=== PATIENT | female | born 1990 | race African-American/Black ===

== ENCOUNTER 2017-09-30 15:17 | Emergency (ER) | payer SELFPAY ==
[~2017-09-30] VITALS: Ht 157.5 cm; Wt 50.0 kg
[2017-09-30 15:18] VITALS: BP 120/70; PULSE 83; RESP 16; TEMP 99.4; O2SAT 100
--- NOTE | 2017-09-30 16:25 | PD ---
HPI Chief Complaint: Related Problem Time Seen by Provider: 16:24 Travel History International Travel<30 days: No Contact w/Intl Traveler<30days: No Traveled to known affect area: No History of Present Illness HPI 26 YO F presents to the ED for evaluation of 2 week history of 6/ 10 epigastric discomfort and nausea. Worsened after eating. She states that she feels as if her food "isn't sitting right." Patient denies fever, chills, anorexia, constipation, diarrhea, melena, hematochezia, dysuria, urinary urgency , vaginal discharge, vaginal bleeding, back pain. LMP 08/17/17. She states that she found out she was on 09/16, has not seen an soil analyst. Her daughter is 5, healthy. Patient denies chronic health problems and takes no daily medications. Denies cigarette smoking or illicit drug use. PFSH Social History Tobacco Use: No Allergies-Medications Reported Meds & Prescriptions Reported Meds & Active Scripts Active Ranitidine (Ranitidine HCl) 150 Mg Tab 150 Mg PO DAILY Review of Systems Except as stated in HPI: all other systems reviewed are Neg Physical Exam Narrative GENERAL: Well-nourished, well-developed thin black female in no acute distress. SKIN: Focused skin assessment warm/dry. HEAD: Normocephalic. EYES: No scleral icterus. No injection or drainage. NECK: Supple, trachea midline. No JVD or lymphadenopathy. CARDIOVASCULAR: Regular rate and rhythm without murmurs, gallops, or rubs. RESPIRATORY: Breath sounds clear and equal bilaterally. No accessory muscle use. GASTROINTESTINAL: Abdomen soft, non-tender, nondistended. No suprapubic tenderness. Active bowel sounds. MUSCULOSKELETAL: No cyanosis, or edema. BACK: Nontender without obvious deformity. No CVA tenderness. Data Data Last Documented VS Vital Signs Date Time Temp Pulse Resp B/P (MAP) Pulse Ox O2 Delivery O2 Flow Rate FiO2 09/30/17 18:04 09/30/17 15:18 99.4 83 16 100 Room Air Orders Orders Beta Hcg (Quant/Titer) (09/30/17 15:36) Urinalysis - C+S If Indicated (09/30/17 15:36) Complete Rh (09/30/17 15:36) Complete Blood Count With Diff (09/30/17 15:36) Basic Metabolic Panel (Bmp) (09/30/17 15:36) Ed Discharge Order (09/30/17 17:27) Labs Laboratory Tests Test 09/30/17 15:45 White Blood Count 9.4 TH/MM3 Red Blood Count 4.71 MIL/MM3 Hemoglobin 14.1 GM/DL Hematocrit 42.6 % Mean Corpuscular Volume 90.5 FL Mean Corpuscular Hemoglobin 29.9 PG Mean Corpuscular Hemoglobin Concent 33.1 % Red Cell Distribution Width 14.5 % Platelet Count 251 TH/MM3 Mean Platelet Volume 8.6 FL Neutrophils (%) (Auto) 74.1 % Lymphocytes (%) (Auto) 17.3 % Monocytes (%) (Auto) 7.1 % Eosinophils (%) (Auto) 1.3 % Basophils (%) (Auto) 0.2 % Neutrophils # (Auto) 7.0 TH/MM3 Lymphocytes # (Auto) 1.6 TH/MM3 Monocytes # (Auto) 0.7 TH/MM3 Eosinophils # (Auto) 0.1 TH/MM3 Basophils # (Auto) 0.0 TH/MM3 CBC Comment DIFF FINAL Differential Comment Urine Color YELLOW Urine Turbidity CLEAR Urine pH 6.0 Urine Specific [place] 1.028 Urine Protein TRACE mg/dL Urine Glucose (UA) 70 mg/dL Urine Ketones NEG mg/dL Urine Occult Blood NEG Urine Nitrite NEG Urine Bilirubin NEG Urine Urobilinogen 2.0 MG/DL Urine Leukocyte Esterase TRACE Urine RBC 1 /hpf Urine WBC 4 /hpf Urine Squamous Epithelial Cells 3 /hpf Urine Bacteria RARE /hpf Urine Mucus FEW /lpf Microscopic Urinalysis Comment CULT NOT INDICATED Blood Urea Nitrogen 6 MG/DL Creatinine 0.73 MG/DL Random Glucose 71 MG/DL Calcium Level 9.2 MG/DL Sodium Level 136 MEQ/L Potassium Level 3.7 MEQ/L Chloride Level 103 MEQ/L Carbon Dioxide Level 24.4 MEQ/L Anion Gap 9 MEQ/L Estimat Glomerular Filtration Rate 98 ML/MIN Human Chorionic Gonadotropin, Quant 69871 MIU/ML [facility] Medical Decision Making Medical Screen Exam Complete: Yes Emergency Medical Condition: Yes Differential Diagnosis GERD versus early versus less likely cholecystitis versus less likely pancreatitis versus other Narrative Course 26 YO F presents to the ED for evaluation of 2 week history of 6/ 10 epigastric discomfort and nausea. Worsened after eating. She states that she feels as if her food "isn't sitting right." Patient denies fever, chills, anorexia, constipation, diarrhea, melena, hematochezia, dysuria, urinary urgency , vaginal discharge, vaginal bleeding, back pain. LMP 08/17/17. She has not seen an soil analyst. Patient denies chronic health problems and takes no daily medications. Denies cigarette smoking or illicit drug use. Vitals reviewed. Physical exam reveals a nontoxic-appearing thin black female in no acute distress. Some mild epigastric tenderness but otherwise unremarkable. Beta hCG 13,000+. No concerning abnormalities of the CBC, BMP. I suspect she has got GERD related to her . We discussed dietary changes, over-the- counter medications. She is prescribed a short course of ranitidine. She is instructed to obtain obstetric care as soon as possible, initiate vitamins. She indicated understanding of the instructions and is agreeable a care plan. She stable and discharged home. On review of the patient's record I see that she has asymptomatic bacteriuria in . I left a note with the charge nurse to call in a prescription of Macrobid 100 mg twice a day 7 days for the patient. This task will likely be completed in the morning. Diagnosis Primary Impression: GERD (gastroesophageal reflux disease) Qualified Codes: K21.9 - Gastro-esophageal reflux disease without esophagitis Additional Impression: First trimester Referrals: Senior Applications Analyst Patient Instructions: Diet for Stomach Ulcers and Gastritis (ED), First Trimester (ED), Gastroesophageal Reflux Disease (ED), General Instructions Additional Instructions: Rest, hydrate. Avoid foods that cause symptoms. [id number] antacids such as Tums may also help to reduce your symptoms. If these treatments do not improve your symptoms, begin Ranitidine as prescribed. Establish care with an soil analyst as soon as possible. Return to the ED for worsening symptoms or any urgent or emergent medical condition. Scripts Ranitidine (Ranitidine) 150 Mg Tab 150 MG PO DAILY for Heartburn Management, #30 TAB 0 Refills Prov: J Carlos Duron MD 09/30/17 Disposition: 01 DISCHARGE HOME Condition: Stable Nimco Payne Sep 30, 2017 16:25
[2017-09-30 16:29] LABS: BASOPHIL % 0.2 % (0.0-2.0); EOSINOPHIL # 0.1 TH/MM3 (0-0.4); EOSINOPHIL % 1.3 % (0.0-4.0); HEMATOCRIT 42.6 % (35.0-46.0); HEMO FLAGS DIFF FINAL; LYMPH % 17.3 % (9.0-44.0); LYMPHOCYTE # 1.6 TH/MM3 (1.0-4.8); MEAN CELL VOLUME 90.5 FL (80.0-100.0); MEAN CORPUSCULAR HEMOGLOBIN 29.9 PG (27.0-34.0); MEAN CORPUSCULAR HGB CONC 33.1 % (32.0-36.0); MONO % 7.1 % (0.0-8.0); NEUT % 74.1 % (16.0-70.0); PLATELET COUNT 251 TH/MM3 (150-450); RED BLOOD COUNT 4.71 MIL/MM3 (4.00-5.30); RED CELL DISTRIBUTION WIDTH 14.5 % (11.6-17.2); WHITE BLOOD COUNT 9.4 TH/MM3 (4.0-11.0)
[2017-09-30 16:30] LABS: BACTERIA, URINE RARE /hpf; BLOOD, URINE NEG (NEG); COMMENT (UR) CULT NOT INDICATED; CULTURE IF INDICATED CULT NOT INDICATED; GLUCOSE,URINE 70 mg/dL (NEG); KETONE, URINE NEG (NEG); MUCUS URINE FEW /lpf (OCC); NITRITE,URINE NEG (NEG); SQUAMOUS EPITHELIAL CELL URINE 3 /hpf (0-5); URINE COLOR YELLOW (YELLW/STRAW)
[2017-09-30] MEDS ORDERED: RANI150T PO (16:48)
[2017-09-30 16:50] LABS: BICARBONATE 24.4 MEQ/L (21.0-32.0); POTASSIUM 3.7 MEQ/L (3.5-5.1)
== END 2017-09-30 18:03 | disposition home or self-care (01) ==
LOC: NEPC 15:17
DX: O99.611 Diseases of the digestive system complicating pregnancy, first trimester (principal); K21.9 Gastro-esophageal reflux disease without esophagitis; Z3A.00 Weeks of gestation of pregnancy not specified
CPT/HCPCS: 80048; 81001; 84702; 85025; 86901; 99283